=== PATIENT | female | born 1940 | race Two or more races ===

== ENCOUNTER 2017-12-09 14:14 | Outpatient (CLI) | payer OTHER | END 2017-12-09 14:28 | disposition home or self-care (01) | LOC: MAMO-SONO 14:14 | DX: Z12.31 Encounter for screening mammogram for malignant neoplasm of breast (principal); Z87.898 Personal history of other specified conditions; N60.11 Diffuse cystic mastopathy of right breast; N60.12 Diffuse cystic mastopathy of left breast ==

== ENCOUNTER 2019-06-28 13:02 | Outpatient (CLI) | payer OTHER | END 2019-06-28 13:09 | disposition home or self-care (01) | LOC: MAMO-SONO 13:02 | DX: Z12.31 Encounter for screening mammogram for malignant neoplasm of breast (principal); N60.11 Diffuse cystic mastopathy of right breast; N60.12 Diffuse cystic mastopathy of left breast; Z87.898 Personal history of other specified conditions; Z09 Encounter for follow-up examination after completed treatment for conditions other than malignant neoplasm ==